=== PATIENT | female | born 1990 | race Caucasian/White ===

== ENCOUNTER 2016-06-15 21:31 | Emergency (ER) | payer MEDICAID, OTHER ==
[~2016-06-15 21:31] MED LIST: DIAZ5TAB PO; DYAZ37.5 PO; FLUO10CA9 PO; FLUO1TAB3 PO; HYDR25T PO; KEFL500C OR; LEXA1TAB PO; MULTIVIT PO; No Historical Meds; PROZ20CA11 PO; TRIA37.53 PO; VALI5TAB PO; VIST25CA PO; XANA1TAB2 PO
[2016-06-15] MEDS ORDERED: valACYclovir HCL 500 MG TAB As Ordered ONE (23:42)
--- NOTE | 2016-06-15 23:49 | EDDOCDS ---
Nurse's Notes [facility] Name: Teodora Herrera Age: 26 yrs Sex: Female : 1990 Arrival Date: 06/15/2016 Time: 21:31 Bed TR7 Private MD: Diagnosis: Herpesviral infection of genitalia and urogenital tract Presentation: 06/15 21:37 Presenting complaint: Patient states: noticed vaginal cyst and drainage for 3 days. rs3 Adult Sepsis Screening: The patient does not have new or worsening altered mentation. Patient's respiratory rate is less than 22. Systolic blood pressure is greater than 100. Patient has a qSOFA score of 0- Negative Sepsis Screen. Suicide/Homicide risk assessment- the patient denies having any suicidal and/or homicidal ideations and does not present with any other emotional, behavioral or mental health complaints. Status: Patient is not a service shop foreman or dependent. Transition of care: patient was not received from another setting of care. 21:37 Acuity: MASHA Level 3 rs3 21:37 Method Of Arrival: Walkin/Carried/Asstd rs3 Triage Assessment: 21:40 General: Appears in no apparent distress. Pain: Location: pelvis. HIV screening NA for rs3 this visit Offered previously. 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 none - PMHx: Anxiety; Depression; - PSHx: ; - Social history: Smoking status: Patient states former smoker of tobacco. No barriers to communication noted, The patient speaks fluent Yi. - Family history: Not pertinent. - : The pt / caregiver states he / she is not on anticoagulants. Home medication list is obtained from the patient. - Exposure Risk Screening:: None identified. Assessment: 23:01 General: Appears distressed, Behavior is crying. Neurological: Level of Consciousness jmb is awake, alert, obeys commands, Oriented to person, place, time, Speech is normal, Facial symmetry appears normal, Facial symmetry: tongue is midline. Cardiovascular: Capillary refill < 3 seconds Heart tones present Pulses are all present. Rhythm is regular. Respiratory: Airway is patent Respiratory effort is even, unlabored, Respiratory pattern is regular, symmetrical, Breath sounds are clear bilaterally. GI: Abdomen is obese, Bowel sounds present X 4 quads. Abd is soft X 4 quads. Derm: Skin is pink, warm & dry. Musculoskeletal: Range of motion intact in all extremities. Vital Signs: 21:33 BP 136 / 73; Pulse 88; Resp 18; Temp 96.9(O); Pulse Ox 99% on R/A; Weight 108.86 kg bruce (R); Height 5 ft. 2 in. (157.48 cm) (R); Pain 0/10; 23:37 BP 132 / 73 RA Sitting (auto/reg); Pulse 78 MON; Resp 20 S; Temp 96.6(O); Pulse Ox 97% cln on R/A; Pain 0/10; 21:33 Body Mass Index 43.90 (108.86 kg, 157.48 cm) bruce Vitals: 21:33 Log In Time: June 15, 2016 at 21:20. bruce 23:26 HIV Screen Result: Negative. b ED Course: 21:32 Patient visited by Leslee Goldberg PCA. bruce 21:32 Patient moved to Waiting bruce 21:34 Patient moved to Pre RCE bruce 21:39 Triage Initiated rs3 22:25 Patient moved to Triage 3 cln 22:27 Patient moved to I7 / 29 ms18 22:30 Chantell Jiménez MD is Attending Physician. ml 22:30 Patient visited by Chantell Jiménez MD. ml 22:30 Assist provider with pelvic exam: Set up pelvic tray. Specimens sent to lab. cz 22:47 Wet Prep Sent. cln 22:47 GC & Chlamydia Amplification Sent. cln 22:47 Viral Culture - All Other Sources Sent. cln 22:57 Patient visited by Evie Sutton PCA. cln 23:02 Patient visited by Vadim Garrett RN. jmb 23:36 Adriana Warner MD is Referral Physician. ml 23:40 Patient visited by Evie Sutton PCA. cln 23:46 Patient moved to TR7 cz 23:47 The patient / caregiver is instructed regarding the plan of care and ED course. cz 23:47 No IV's were initiated during this patient's visit. cz Administered Medications: 23:47 Drug: valACYclovir 1000 mg [valacyclovir 500 mg tablet (2 tabs)] Route: PO; cz Point of Care Testing: Urine : 22:56 hCG Reading: Negative; Control Reading: Positive; cln Ranges: Order Results: Lab Order: Wet Prep; SPEC'M 06/15/16 22:46 Test: WET PREP; Value: WET PREP RESULT; Status: F Test: WET PREP; Value: MANY EPITHELIAL CELLS PRESENT; Status: F Test: WET PREP; Value: FEW WBC; Status: F Test: WET PREP; Value: MODERATE SHORT RODS PRESENT; Status: F Test: WET PREP; Value: FEW LONG RODS PRESENT; Status: F Test: WET PREP; Value: MANY RBC; Status: F Outcome: 23:36 Discharge ordered by Provider. 23:47 Discharge Assessment: Patient awake, alert and oriented x 3. No cognitive and/or cz functional deficits noted. Patient verbalized understanding of disposition instructions. patient administered narcotics - no. The following High Risk Discharge criteria are identified: None. Discharged to home ambulatory, with significant other. Condition: stable. Discharge instructions given to patient, Instructed on discharge instructions, follow up and referral plans. medication usage, Demonstrated understanding of instructions, medications, Pt was receptive of discharge instructions/ teaching. Prescriptions given X 1. No special radiology studies were completed. Property :Personal belongings accompany Pt. 23:48 Patient left the ED. cz Signatures: Chantell Jiménez MD MD ml Zecher, Calvin, RN RN Kristine BarnesRN RN rs3 Leslee Goldberg, MOTOR VEHICLE SALESPERSON MOTOR VEHICLE SALESPERSON Vadim Eng RN RN Merry Hobbs RN RN ms18 Evie Sutton, MOTOR VEHICLE SALESPERSON MOTOR VEHICLE SALESPERSON cln MTDD
--- NOTE | 2016-06-15 23:49 | EDDOCDS ---
Physician Documentation [facility] Name: Teodora Herrera Age: 26 yrs Sex: Female : 1990 Arrival Date: 06/15/2016 Time: 21:31 Bed TR7 Private MD: Disposition: 06/15/16 23:36 Discharged to Home/Self Care. 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 - Condition is Stable. - Discharge Instructions: Herpes Labialis. - Prescriptions for Valtrex 1 g Oral Tablet - take 1 tablet by ORAL route every 12 hours for 10 days; 4 tablet. - Medication Reconciliation, Local Pharmacy Hours form. - Follow up: Adriana Warner MD; When: 1 week. - Problem is new. - Symptoms are unchanged. - Notes: follow up with gynecology. return if worsening symptoms. as discussed when outbreak is present - condom use completely. Historical: - Allergies: no known allergies; - Home Meds: 1. none - PMHx: Anxiety; Depression; - PSHx: ; - Social history: Smoking status: Patient states former smoker of tobacco. No barriers to communication noted, The patient speaks fluent Yemeni. - Family history: Not pertinent. - : The pt / caregiver states he / she is not on anticoagulants. Home medication list is obtained from the patient. - Exposure Risk Screening:: None identified. BOTANICAL TECHNICAL OFFICER: 06/15 21:40 LMP 06/14/2016 rs3 Vital Signs: 21:33 BP 136 / 73; Pulse 88; Resp 18; Temp 96.9(O); Pulse Ox 99% on R/A; Weight 108.86 kg / bruce 240 lbs (R); Height 5 ft. 2 in. (157.48 cm) (R); Pain 0/10; 23:37 BP 132 / 73 RA Sitting (auto/reg); Pulse 78 MON; Resp 20 S; Temp 96.6(O); Pulse Ox 97% cln on R/A; Pain 0/10; 21:33 Body Mass Index 43.90 (108.86 kg, 157.48 cm) bruce MDM: 22:37 UCG by Nursing ordered. ml 22:37 Viral Culture - All Other Sources Ordered. EDMS 22:37 GC & Chlamydia Amplification Ordered. EDMS 22:37 Wet Prep Ordered. EDMS 22:43 HIV Screen, Nursing ordered. ml 23:35 Wet Prep Reviewed. ml 23:36 valACYclovir 1000 mg PO once ordered. ml Point of Care Testing: Urine : 22:56 hCG Reading: Negative; Control Reading: Positive; cln Ranges: Administered Medications: 23:47 Drug: valACYclovir 1000 mg [valacyclovir 500 mg tablet (2 tabs)] Route: PO; cz Signatures: Dispatcher [employer] EDChantell Tierney MD MD Solo Tang RN RN Kristine Crum RN RN rs3 MTDD
--- NOTE | 2016-06-18 00:49 | EDDOCDS ---
Nurse's Notes [facility] Name: Teodora Herrera Age: 26 yrs Sex: Female : 1990 Arrival Date: 06/15/2016 Time: 21:31 Bed TR7 Private MD: Diagnosis: Herpesviral infection of genitalia and urogenital tract Presentation: 06/15 21:37 Presenting complaint: Patient states: noticed vaginal cyst and drainage for 3 days. rs3 Adult Sepsis Screening: The patient does not have new or worsening altered mentation. Patient's respiratory rate is less than 22. Systolic blood pressure is greater than 100. Patient has a qSOFA score of 0- Negative Sepsis Screen. Suicide/Homicide risk assessment- the patient denies having any suicidal and/or homicidal ideations and does not present with any other emotional, behavioral or mental health complaints. Status: Patient is not a food service lead or dependent. Transition of care: patient was not received from another setting of care. 21:37 Acuity: MASHA Level 3 rs3 21:37 Method Of Arrival: Walkin/Carried/Asstd rs3 Triage Assessment: 21:40 General: Appears in no apparent distress. Pain: Location: pelvis. HIV screening NA for rs3 this visit Offered previously. HOUSEKEEPING LEAD: 21:40 LMP 06/14/2016 rs3 Historical: - Allergies: no known allergies; - Home Meds: 1. none - PMHx: Anxiety; Depression; - PSHx: ; - Social history: Smoking status: Patient states former smoker of tobacco. No barriers to communication noted, The patient speaks fluent Kinyarwanda. - Family history: Not pertinent. - : The pt / caregiver states he / she is not on anticoagulants. Home medication list is obtained from the patient. - Exposure Risk Screening:: None identified. Assessment: 23:01 General: Appears distressed, Behavior is crying. Neurological: Level of Consciousness jmb is awake, alert, obeys commands, Oriented to person, place, time, Speech is normal, Facial symmetry appears normal, Facial symmetry: tongue is midline. Cardiovascular: Capillary refill < 3 seconds Heart tones present Pulses are all present. Rhythm is regular. Respiratory: Airway is patent Respiratory effort is even, unlabored, Respiratory pattern is regular, symmetrical, Breath sounds are clear bilaterally. GI: Abdomen is obese, Bowel sounds present X 4 quads. Abd is soft X 4 quads. Derm: Skin is pink, warm & dry. Musculoskeletal: Range of motion intact in all extremities. Vital Signs: 21:33 BP 136 / 73; Pulse 88; Resp 18; Temp 96.9(O); Pulse Ox 99% on R/A; Weight 108.86 kg bruce (R); Height 5 ft. 2 in. (157.48 cm) (R); Pain 0/10; 23:37 BP 132 / 73 RA Sitting (auto/reg); Pulse 78 MON; Resp 20 S; Temp 96.6(O); Pulse Ox 97% cln on R/A; Pain 0/10; 21:33 Body Mass Index 43.90 (108.86 kg, 157.48 cm) bruce Vitals: 21:33 Log In Time: June 15, 2016 at 21:20. bruce 23:26 HIV Screen Result: Negative. b ED Course: 21:32 Patient visited by Leslee Goldberg PCA. bruce 21:32 Patient moved to Waiting bruce 21:34 Patient moved to Pre RCE bruce 21:39 Triage Initiated rs3 22:25 Patient moved to Triage 3 cln 22:27 Patient moved to I / ms18 22:30 Chantell Jiménez MD is Attending Physician. ml 22:30 Patient visited by Chantell Jiménez MD. ml 22:30 Assist provider with pelvic exam: Set up pelvic tray. Specimens sent to lab. cz 22:47 Wet Prep Sent. cln 22:47 GC & Chlamydia Amplification Sent. cln 22:47 Viral Culture - All Other Sources Sent. cln 22:57 Patient visited by Evie Sutton PCA. cln 23:02 Patient visited by Vadim Garrett RN. jmb 23:36 Adriana Warner MD is Referral Physician. ml 23:40 Patient visited by Evie Sutton PCA. cln 23:46 Patient moved to TR7 cz 23:47 The patient / caregiver is instructed regarding the plan of care and ED course. cz 23:47 No IV's were initiated during this patient's visit. cz 06/16 11:17 T-Sheet-- Draft Copy was scanned into [employer] and attached to record. gb Administered Medications: 06/15 23:47 Drug: valACYclovir 1000 mg [valacyclovir 500 mg tablet (2 tabs)] Route: PO; cz Point of Care Testing: Urine : 22:56 hCG Reading: Negative; Control Reading: Positive; cln Ranges: Order Results: Lab Order: GC & Chlamydia Amplification; SPEC'M 06/15/16 22:46 Test: CHLAMYDIA DNA AMPLIFICATION; Value: NEGATIVE; Range: NEGATIVE; Status: F Test: GC DNA AMPLIFICATION; Value: NEGATIVE; Range: NEGATIVE; Status: F Lab Order: Wet Prep; SPEC'M 06/15/16 22:46 Test: WET PREP; Value: WET PREP RESULT; Status: F Test: WET PREP; Value: MANY EPITHELIAL CELLS PRESENT; Status: F Test: WET PREP; Value: FEW WBC; Status: F Test: WET PREP; Value: MODERATE SHORT RODS PRESENT; Status: F Test: WET PREP; Value: FEW LONG RODS PRESENT; Status: F Test: WET PREP; Value: MANY RBC; Status: F Outcome: 23:36 Discharge ordered by Provider. ml 23:47 Discharge Assessment: Patient awake, alert and oriented x 3. No cognitive and/or cz functional deficits noted. Patient verbalized understanding of disposition instructions. patient administered narcotics - no. The following High Risk Discharge criteria are identified: None. Discharged to home ambulatory, with significant other. Condition: stable. Discharge instructions given to patient, Instructed on discharge instructions, follow up and referral plans. medication usage, Demonstrated understanding of instructions, medications, Pt was receptive of discharge instructions/ teaching. Prescriptions given X 1. No special radiology studies were completed. Property :Personal belongings accompany Pt. 23:48 Patient left the ED. cz Signatures: Chantell Jiménez MD MD ml Solo Tang RN RN Liya Franco, Reg Reg gb Kristine CrumRN RN rs3 Leslee Goldberg, FOOD PRODUCTION WORKER FOOD PRODUCTION WORKER Vadim Eng RN RN jmb Smith, Mallory, RN RN ms18 Evie Sutton, FOOD PRODUCTION WORKER FOOD PRODUCTION WORKER cln Chart Complete MTDD
--- NOTE | 2016-06-18 00:49 | EDDOCDS ---
Physician Documentation [facility] Name: Teodora Herrera Age: 26 yrs Sex: Female : 1990 Arrival Date: 06/15/2016 Time: 21:31 Bed TR7 Private MD: Disposition: 06/15/16 23:36 Discharged to Home/Self Care. 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 - Condition is Stable. - Discharge Instructions: Herpes Labialis. - Prescriptions for Valtrex 1 g Oral Tablet - take 1 tablet by ORAL route every 12 hours for 10 days; 4 tablet. - Medication Reconciliation, Local Pharmacy Hours form. - Follow up: Adriana Warner MD; When: 1 week. - Problem is new. - Symptoms are unchanged. - Notes: follow up with gynecology. return if worsening symptoms. as discussed when outbreak is present - condom use completely. Historical: - Allergies: no known allergies; - Home Meds: 1. none - PMHx: Anxiety; Depression; - PSHx: ; - Social history: Smoking status: Patient states former smoker of tobacco. No barriers to communication noted, The patient speaks fluent Somali. - Family history: Not pertinent. - : The pt / caregiver states he / she is not on anticoagulants. Home medication list is obtained from the patient. - Exposure Risk Screening:: None identified. PIPELINE SUPERINTENDENT DIVISION: 06/15 21:40 LMP 06/14/2016 rs3 Vital Signs: 21:33 BP 136 / 73; Pulse 88; Resp 18; Temp 96.9(O); Pulse Ox 99% on R/A; Weight 108.86 kg / bruce 240 lbs (R); Height 5 ft. 2 in. (157.48 cm) (R); Pain 0/10; 23:37 BP 132 / 73 RA Sitting (auto/reg); Pulse 78 MON; Resp 20 S; Temp 96.6(O); Pulse Ox 97% cln on R/A; Pain 0/10; 21:33 Body Mass Index 43.90 (108.86 kg, 157.48 cm) bruce MDM: 22:37 UCG by Nursing ordered. ml 22:37 Viral Culture - All Other Sources Ordered. EDMS 22:37 GC & Chlamydia Amplification Ordered. EDMS 22:37 Wet Prep Ordered. EDMS 22:43 HIV Screen, Nursing ordered. ml 23:35 Wet Prep Reviewed. ml 23:36 valACYclovir 1000 mg PO once ordered. ml 06/16 11:17 T-Sheet-- Draft Copy was scanned into [employer] and attached to record. [email or web address] Point of Care Testing: Urine : 06/15 22:56 hCG Reading: Negative; Control Reading: Positive; cln Ranges: Administered Medications: 23:47 Drug: valACYclovir 1000 mg [valacyclovir 500 mg tablet (2 tabs)] Route: PO; cz Signatures: Dispatcher [employer] EDMT Chantell Jiménez MD MD ml Zecher, Calvin, SCOTT RN cz Liya Velasquez, Kristine PerezRN RN rs3 The chart was reviewed and I authenticate all verbal orders and agree with the evaluation and treatment provided.Attachments: 06/16 11:17 T-Sheet-- Draft Copy gb Chart Complete MTDD
--- NOTE | 2016-06-18 00:49 | EDDOCDS ---
Physician Documentation [facility] Name: Teodora Herrera Age: 26 yrs Sex: Female : 1990 Arrival Date: 06/15/2016 Time: 21:31 Bed TR7 Private MD: Disposition: 06/15/16 23:36 Discharged to Home/Self Care. 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 - Condition is Stable. - Discharge Instructions: Herpes Labialis. - Prescriptions for Valtrex 1 g Oral Tablet - take 1 tablet by ORAL route every 12 hours for 10 days; 4 tablet. - Medication Reconciliation, Local Pharmacy Hours form. - Follow up: Adriana Warner MD; When: 1 week. - Problem is new. - Symptoms are unchanged. - Notes: follow up with gynecology. return if worsening symptoms. as discussed when outbreak is present - condom use completely. Historical: - Allergies: no known allergies; - Home Meds: 1. none - PMHx: Anxiety; Depression; - PSHx: ; - Social history: Smoking status: Patient states former smoker of tobacco. No barriers to communication noted, The patient speaks fluent Estonian. - Family history: Not pertinent. - : The pt / caregiver states he / she is not on anticoagulants. Home medication list is obtained from the patient. - Exposure Risk Screening:: None identified. YOUTH WORKER: 06/15 21:40 LMP 06/14/2016 rs3 Vital Signs: 21:33 BP 136 / 73; Pulse 88; Resp 18; Temp 96.9(O); Pulse Ox 99% on R/A; Weight 108.86 kg / bruce 240 lbs (R); Height 5 ft. 2 in. (157.48 cm) (R); Pain 0/10; 23:37 BP 132 / 73 RA Sitting (auto/reg); Pulse 78 MON; Resp 20 S; Temp 96.6(O); Pulse Ox 97% cln on R/A; Pain 0/10; 21:33 Body Mass Index 43.90 (108.86 kg, 157.48 cm) bruce MDM: 22:37 UCG by Nursing ordered. ml 22:37 Viral Culture - All Other Sources Ordered. EDMS 22:37 GC & Chlamydia Amplification Ordered. EDMS 22:37 Wet Prep Ordered. EDMS 22:43 HIV Screen, Nursing ordered. ml 23:35 Wet Prep Reviewed. ml 23:36 valACYclovir 1000 mg PO once ordered. ml 06/16 11:17 T-Sheet-- Draft Copy was scanned into [employer] and attached to record. [email or web address] Point of Care Testing: Urine : 06/15 22:56 hCG Reading: Negative; Control Reading: Positive; cln Ranges: Administered Medications: 23:47 Drug: valACYclovir 1000 mg [valacyclovir 500 mg tablet (2 tabs)] Route: PO; cz Signatures: Dispatcher [employer] EDNE Chantell Jiménez MD MD ml Zecher, Calvin, SCOTT RN cz Liya Velasquez, Kristine PerezRN RN rs3 The chart was reviewed and I authenticate all verbal orders and agree with the evaluation and treatment provided.Attachments: 06/16 11:17 T-Sheet-- Draft Copy gb Chart Complete MTDD
--- NOTE | 2016-06-21 11:16 | EDDOCDS ---
Physician Documentation [facility] Name: Teodora Herrera Age: 26 yrs Sex: Female : 1990 Arrival Date: 06/15/2016 Time: 21:31 Bed TR7 Private MD: Disposition: 06/15/16 23:36 Discharged to Home/Self Care. 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 - Condition is Stable. - Discharge Instructions: Herpes Labialis. - Prescriptions for Valtrex 1 g Oral Tablet - take 1 tablet by ORAL route every 12 hours for 10 days; 4 tablet. - Medication Reconciliation, Local Pharmacy Hours form. - Follow up: Adriana Warner MD; When: 1 week. - Problem is new. - Symptoms are unchanged. - Notes: follow up with gynecology. return if worsening symptoms. as discussed when outbreak is present - condom use completely. Historical: - Allergies: no known allergies; - Home Meds: 1. none - PMHx: Anxiety; Depression; - PSHx: ; - Social history: Smoking status: Patient states former smoker of tobacco. No barriers to communication noted, The patient speaks fluent Peruvian. - Family history: Not pertinent. - : The pt / caregiver states he / she is not on anticoagulants. Home medication list is obtained from the patient. - Exposure Risk Screening:: None identified. INSIDE SALES DIRECTOR: 06/15 21:40 LMP 06/14/2016 rs3 Vital Signs: 21:33 BP 136 / 73; Pulse 88; Resp 18; Temp 96.9(O); Pulse Ox 99% on R/A; Weight 108.86 kg / bruce 240 lbs (R); Height 5 ft. 2 in. (157.48 cm) (R); Pain 0/10; 23:37 BP 132 / 73 RA Sitting (auto/reg); Pulse 78 MON; Resp 20 S; Temp 96.6(O); Pulse Ox 97% cln on R/A; Pain 0/10; 21:33 Body Mass Index 43.90 (108.86 kg, 157.48 cm) bruce MDM: 22:37 UCG by Nursing ordered. ml 22:37 Viral Culture - All Other Sources Ordered. EDMS 22:37 GC & Chlamydia Amplification Ordered. EDMS 22:37 Wet Prep Ordered. EDMS 22:43 HIV Screen, Nursing ordered. ml 23:35 Wet Prep Reviewed. ml 23:36 valACYclovir 1000 mg PO once ordered. ml 06/16 11:17 T-Sheet-- Draft Copy was scanned into [employer] and attached to record. [email or web address] Point of Care Testing: Urine : 06/15 22:56 hCG Reading: Negative; Control Reading: Positive; cln Ranges: Administered Medications: 23:47 Drug: valACYclovir 1000 mg [valacyclovir 500 mg tablet (2 tabs)] Route: PO; cz Signatures: Dispatcher [employer] EDSC Chantell Jiménez MD MD ml Zecher, Calvin, SCOTT RN cz Liya Velasquez, Krsitine PerezRN RN rs3 The chart was reviewed and I authenticate all verbal orders and agree with the evaluation and treatment provided.Attachments: 06/16 11:17 T-Sheet-- Draft Copy gb MTDD
--- NOTE | 2016-06-21 11:16 | EDDOCDS ---
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 rs3 Adult Sepsis Screening: The patient does not have new or worsening altered mentation. Patient's respiratory rate is less than 22. Systolic blood pressure is greater than 100. Patient has a qSOFA score of 0- Negative Sepsis Screen. Suicide/Homicide risk assessment- the patient denies having any suicidal and/or homicidal ideations and does not present with any other emotional, behavioral or mental health complaints. 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 Transition of care: patient was not received from another setting of care. 21:37 Acuity: MASHA Level 3 rs3 21:37 Method Of Arrival: Walkin/Carried/Asstd rs3 Triage Assessment: 21:40 General: Appears in no apparent distress. Pain: Location: pelvis. HIV screening NA for rs3 this visit Offered previously. 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 none - PMHx: Anxiety; Depression; - PSHx: ; - Social history: Smoking status: Patient states former smoker of tobacco. No barriers to communication noted, The patient speaks fluent Turkish. - Family history: Not pertinent. - : The pt / caregiver states he / she is not on anticoagulants. Home medication list is obtained from the patient. - Exposure Risk Screening:: None identified. Assessment: 23:01 General: Appears distressed, Behavior is crying. Neurological: Level of Consciousness jmb is awake, alert, obeys commands, Oriented to person, place, time, Speech is normal, Facial symmetry appears normal, Facial symmetry: tongue is midline. Cardiovascular: Capillary refill < 3 seconds Heart tones present Pulses are all present. Rhythm is regular. Respiratory: Airway is patent Respiratory effort is even, unlabored, Respiratory pattern is regular, symmetrical, Breath sounds are clear bilaterally. GI: Abdomen is obese, Bowel sounds present X 4 quads. Abd is soft X 4 quads. Derm: Skin is pink, warm & dry. Musculoskeletal: Range of motion intact in all extremities. Vital Signs: 21:33 BP 136 / 73; Pulse 88; Resp 18; Temp 96.9(O); Pulse Ox 99% on R/A; Weight 108.86 kg bruce (R); Height 5 ft. 2 in. (157.48 cm) (R); Pain 0/10; 23:37 BP 132 / 73 RA Sitting (auto/reg); Pulse 78 MON; Resp 20 S; Temp 96.6(O); Pulse Ox 97% cln on R/A; Pain 0/10; 21:33 Body Mass Index 43.90 (108.86 kg, 157.48 cm) bruce Vitals: 21:33 Log In Time: June 15, 2016 at 21:20. bruce 23:26 HIV Screen Result: Negative. b ED Course: 21:32 Patient visited by Leslee Goldberg PCA. bruce 21:32 Patient moved to Waiting bruce 21:34 Patient moved to Pre RCE bruce 21:39 Triage Initiated rs3 22:25 Patient moved to Triage 3 cln 22:27 Patient moved to I / ms18 22:30 Chantell Jiménez MD is Attending Physician. ml 22:30 Patient visited by Chantell Jiménez MD. ml 22:30 Assist provider with pelvic exam: Set up pelvic tray. Specimens sent to lab. cz 22:47 Wet Prep Sent. cln 22:47 GC & Chlamydia Amplification Sent. cln 22:47 Viral Culture - All Other Sources Sent. cln 22:57 Patient visited by Evie Sutton PCA. cln 23:02 Patient visited by Vadim Garrett RN. jmb 23:36 Adriana Warner MD is Referral Physician. ml 23:40 Patient visited by Evie Sutton PCA. cln 23:46 Patient moved to TR7 cz 23:47 The patient / caregiver is instructed regarding the plan of care and ED course. cz 23:47 No IV's were initiated during this patient's visit. cz 06/16 11:17 T-Sheet-- Draft Copy was scanned into [employer] and attached to record. 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 Report copy to follow on a separate form. 06/21/16 REF LAB#:[id number] Lab Order: GC & Chlamydia Amplification; SPEC'M 06/15/16 22:46 Test: CHLAMYDIA DNA AMPLIFICATION; Value: NEGATIVE; Range: NEGATIVE; Status: F Test: GC DNA AMPLIFICATION; Value: NEGATIVE; Range: NEGATIVE; Status: F Lab Order: Wet Prep; SPEC'M 06/15/16 22:46 Test: WET PREP; Value: WET PREP RESULT; Status: F Test: WET PREP; Value: MANY EPITHELIAL CELLS PRESENT; Status: F Test: WET PREP; Value: FEW WBC; Status: F Test: WET PREP; Value: MODERATE SHORT RODS PRESENT; Status: F Test: WET PREP; Value: FEW LONG RODS PRESENT; Status: F Test: WET PREP; Value: MANY RBC; Status: F Outcome: 23:36 Discharge ordered by Provider. 23:47 Discharge Assessment: Patient awake, alert and oriented x 3. No cognitive and/or cz functional deficits noted. Patient verbalized understanding of disposition instructions. patient administered narcotics - no. The following High Risk Discharge criteria are identified: None. Discharged to home ambulatory, with significant other. Condition: stable. Discharge instructions given to patient, Instructed on discharge instructions, follow up and referral plans. medication usage, Demonstrated understanding of instructions, medications, Pt was receptive of discharge instructions/ teaching. Prescriptions given X 1. No special radiology studies were completed. Property :Personal belongings accompany Pt. 23:48 Patient left the ED. cz Addendum: 06/21/2016 11:15 Narrative: viral culture results reviewed - treated appropriately at d/c. [facility] Signatures: Chantell Jiménez MD MD Brock Sterling RN RN [facility] Solo Tang RN RN Adela Francoa, Reg Reg gb Soosamigdalia,Kristine,RN RN rs3 Ashlyn, Leslee, TIMBER MANAGEMENT SPECIALIST TIMBER MANAGEMENT SPECIALIST Vadim Eng,RN RN Merry Hobbs,RN RN ms18 Herman, Crystal, TIMBER MANAGEMENT SPECIALIST TIMBER MANAGEMENT SPECIALIST cln MTDD
--- NOTE | 2016-06-21 11:16 | EDDOCDS ---
Physician Documentation [facility] Name: Teodora Herrera Age: 26 yrs Sex: Female : 1990 Arrival Date: 06/15/2016 Time: 21:31 Bed TR7 Private MD: Disposition: 06/15/16 23:36 Discharged to Home/Self Care. 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 - Condition is Stable. - Discharge Instructions: Herpes Labialis. - Prescriptions for Valtrex 1 g Oral Tablet - take 1 tablet by ORAL route every 12 hours for 10 days; 4 tablet. - Medication Reconciliation, Local Pharmacy Hours form. - Follow up: Adriana Warner MD; When: 1 week. - Problem is new. - Symptoms are unchanged. - Notes: follow up with gynecology. return if worsening symptoms. as discussed when outbreak is present - condom use completely. Historical: - Allergies: no known allergies; - Home Meds: 1. none - PMHx: Anxiety; Depression; - PSHx: ; - Social history: Smoking status: Patient states former smoker of tobacco. No barriers to communication noted, The patient speaks fluent Thai. - Family history: Not pertinent. - : The pt / caregiver states he / she is not on anticoagulants. Home medication list is obtained from the patient. - Exposure Risk Screening:: None identified. GUM REMOVER: 06/15 21:40 LMP 06/14/2016 rs3 Vital Signs: 21:33 BP 136 / 73; Pulse 88; Resp 18; Temp 96.9(O); Pulse Ox 99% on R/A; Weight 108.86 kg / bruce 240 lbs (R); Height 5 ft. 2 in. (157.48 cm) (R); Pain 0/10; 23:37 BP 132 / 73 RA Sitting (auto/reg); Pulse 78 MON; Resp 20 S; Temp 96.6(O); Pulse Ox 97% cln on R/A; Pain 0/10; 21:33 Body Mass Index 43.90 (108.86 kg, 157.48 cm) bruce MDM: 22:37 UCG by Nursing ordered. ml 22:37 Viral Culture - All Other Sources Ordered. EDMS 22:37 GC & Chlamydia Amplification Ordered. EDMS 22:37 Wet Prep Ordered. EDMS 22:43 HIV Screen, Nursing ordered. ml 23:35 Wet Prep Reviewed. ml 23:36 valACYclovir 1000 mg PO once ordered. ml 06/16 11:17 T-Sheet-- Draft Copy was scanned into [employer] and attached to record. jacquie Point of Care Testing: Urine : 06/15 22:56 hCG Reading: Negative; Control Reading: Positive; cln Ranges: Administered Medications: 23:47 Drug: valACYclovir 1000 mg [valacyclovir 500 mg tablet (2 tabs)] Route: PO; cz Signatures: Dispatcher [employer] EDND Chantell Jiménez MD MD ml Zecher, Calvin, SCOTT RN cz Liya Velasquez, Kristine PerezRN RN rs3 The chart was reviewed and I authenticate all verbal orders and agree with the evaluation and treatment provided.Attachments: 06/16 11:17 T-Sheet-- Draft Copy gb MTDD
--- NOTE | 2016-06-21 11:17 | EDDOCDS ---
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 rs3 Adult Sepsis Screening: The patient does not have new or worsening altered mentation. Patient's respiratory rate is less than 22. Systolic blood pressure is greater than 100. Patient has a qSOFA score of 0- Negative Sepsis Screen. Suicide/Homicide risk assessment- the patient denies having any suicidal and/or homicidal ideations and does not present with any other emotional, behavioral or mental health complaints. Status: Patient is not a service desk specialist or dependent. Transition of care: patient was not received from another setting of care. 21:37 Acuity: MASHA Level 3 rs3 21:37 Method Of Arrival: Walkin/Carried/Asstd rs3 Triage Assessment: 21:40 General: Appears in no apparent distress. Pain: Location: pelvis. HIV screening NA for rs3 this visit Offered previously. 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 none - PMHx: Anxiety; Depression; - PSHx: ; - Social history: Smoking status: Patient states former smoker of tobacco. No barriers to communication noted, The patient speaks fluent Luxembourgish. - Family history: Not pertinent. - : The pt / caregiver states he / she is not on anticoagulants. Home medication list is obtained from the patient. - Exposure Risk Screening:: None identified. Assessment: 23:01 General: Appears distressed, Behavior is crying. Neurological: Level of Consciousness jmb is awake, alert, obeys commands, Oriented to person, place, time, Speech is normal, Facial symmetry appears normal, Facial symmetry: tongue is midline. Cardiovascular: Capillary refill < 3 seconds Heart tones present Pulses are all present. Rhythm is regular. Respiratory: Airway is patent Respiratory effort is even, unlabored, Respiratory pattern is regular, symmetrical, Breath sounds are clear bilaterally. GI: Abdomen is obese, Bowel sounds present X 4 quads. Abd is soft X 4 quads. Derm: Skin is pink, warm & dry. Musculoskeletal: Range of motion intact in all extremities. Vital Signs: 21:33 BP 136 / 73; Pulse 88; Resp 18; Temp 96.9(O); Pulse Ox 99% on R/A; Weight 108.86 kg bruce (R); Height 5 ft. 2 in. (157.48 cm) (R); Pain 0/10; 23:37 BP 132 / 73 RA Sitting (auto/reg); Pulse 78 MON; Resp 20 S; Temp 96.6(O); Pulse Ox 97% cln on R/A; Pain 0/10; 21:33 Body Mass Index 43.90 (108.86 kg, 157.48 cm) bruce Vitals: 21:33 Log In Time: June 15, 2016 at 21:20. bruce 23:26 HIV Screen Result: Negative. b ED Course: 21:32 Patient visited by Leslee Goldberg PCA. bruce 21:32 Patient moved to Waiting bruce 21:34 Patient moved to Pre RCE bruce 21:39 Triage Initiated rs3 22:25 Patient moved to Triage 3 cln 22:27 Patient moved to I / ms18 22:30 Chantell Jiménez MD is Attending Physician. ml 22:30 Patient visited by Chantell Jiménez MD. ml 22:30 Assist provider with pelvic exam: Set up pelvic tray. Specimens sent to lab. cz 22:47 Wet Prep Sent. cln 22:47 GC & Chlamydia Amplification Sent. cln 22:47 Viral Culture - All Other Sources Sent. cln 22:57 Patient visited by Evie Sutton PCA. cln 23:02 Patient visited by Vadim Garrett RN. jmb 23:36 Adriana Warner MD is Referral Physician. ml 23:40 Patient visited by Evie Sutton PCA. cln 23:46 Patient moved to TR7 cz 23:47 The patient / caregiver is instructed regarding the plan of care and ED course. cz 23:47 No IV's were initiated during this patient's visit. cz 06/16 11:17 T-Sheet-- Draft Copy was scanned into [employer] and attached to record. 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 Report copy to follow on a separate form. 06/21/16 REF LAB#:[id number] Lab Order: GC & Chlamydia Amplification; SPEC'M 06/15/16 22:46 Test: CHLAMYDIA DNA AMPLIFICATION; Value: NEGATIVE; Range: NEGATIVE; Status: F Test: GC DNA AMPLIFICATION; Value: NEGATIVE; Range: NEGATIVE; Status: F Lab Order: Wet Prep; SPEC'M 06/15/16 22:46 Test: WET PREP; Value: WET PREP RESULT; Status: F Test: WET PREP; Value: MANY EPITHELIAL CELLS PRESENT; Status: F Test: WET PREP; Value: FEW WBC; Status: F Test: WET PREP; Value: MODERATE SHORT RODS PRESENT; Status: F Test: WET PREP; Value: FEW LONG RODS PRESENT; Status: F Test: WET PREP; Value: MANY RBC; Status: F Outcome: 23:36 Discharge ordered by Provider. 23:47 Discharge Assessment: Patient awake, alert and oriented x 3. No cognitive and/or cz functional deficits noted. Patient verbalized understanding of disposition instructions. patient administered narcotics - no. The following High Risk Discharge criteria are identified: None. Discharged to home ambulatory, with significant other. Condition: stable. Discharge instructions given to patient, Instructed on discharge instructions, follow up and referral plans. medication usage, Demonstrated understanding of instructions, medications, Pt was receptive of discharge instructions/ teaching. Prescriptions given X 1. No special radiology studies were completed. Property :Personal belongings accompany Pt. 23:48 Patient left the ED. cz Addendum: 06/21/2016 11:15 Narrative: viral culture results reviewed - treated appropriately at d/c. [facility] Signatures: Chantell Jiménez MD MD Brock Sterling RN RN [facility] Solo Tang RN RN Adela Francoa, Reg Reg gb Soosamigdalia,Kristine,RN RN rs3 Ashlyn, Leslee, CLAM DIGGER CLAM DIGGER bruce Vadim Garrett,RN RN Merry Hobbs,RN RN ms18 Herman, Crystal, CLAM DIGGER CLAM DIGGER cln Chart Complete MTDD
--- NOTE | 2016-06-21 11:17 | EDDOCDS ---
Physician Documentation [facility] Name: Teodora Herrera Age: 26 yrs Sex: Female : 1990 Arrival Date: 06/15/2016 Time: 21:31 Bed TR7 Private MD: Disposition: 06/15/16 23:36 Discharged to Home/Self Care. 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 - Condition is Stable. - Discharge Instructions: Herpes Labialis. - Prescriptions for Valtrex 1 g Oral Tablet - take 1 tablet by ORAL route every 12 hours for 10 days; 4 tablet. - Medication Reconciliation, Local Pharmacy Hours form. - Follow up: Adriana Warner MD; When: 1 week. - Problem is new. - Symptoms are unchanged. - Notes: follow up with gynecology. return if worsening symptoms. as discussed when outbreak is present - condom use completely. Historical: - Allergies: no known allergies; - Home Meds: 1. none - PMHx: Anxiety; Depression; - PSHx: ; - Social history: Smoking status: Patient states former smoker of tobacco. No barriers to communication noted, The patient speaks fluent Kenyan. - Family history: Not pertinent. - : The pt / caregiver states he / she is not on anticoagulants. Home medication list is obtained from the patient. - Exposure Risk Screening:: None identified. 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 2 in. (157.48 cm) (R); Pain 0/10; 23:37 BP 132 / 73 RA Sitting (auto/reg); Pulse 78 MON; Resp 20 S; Temp 96.6(O); Pulse Ox 97% cln on R/A; Pain 0/10; 21:33 Body Mass Index 43.90 (108.86 kg, 157.48 cm) bruce MDM: 22:37 UCG by Nursing ordered. ml 22:37 Viral Culture - All Other Sources Ordered. EDMS 22:37 GC & Chlamydia Amplification Ordered. EDMS 22:37 Wet Prep Ordered. EDMS 22:43 HIV Screen, Nursing ordered. ml 23:35 Wet Prep Reviewed. ml 23:36 valACYclovir 1000 mg PO once ordered. ml 06/16 11:17 T-Sheet-- Draft Copy was scanned into [employer] and attached to record. jacquie Point of Care Testing: Urine : 06/15 22:56 hCG Reading: Negative; Control Reading: Positive; cln Ranges: Administered Medications: 23:47 Drug: valACYclovir 1000 mg [valacyclovir 500 mg tablet (2 tabs)] Route: PO; cz Signatures: Dispatcher [employer] EDDC Chantell Jiménez MD MD ml Zecher, Calvin, SCOTT RN cz Liya Velasquez, Kristine PerezRN RN rs3 The chart was reviewed and I authenticate all verbal orders and agree with the evaluation and treatment provided.Attachments: 06/16 11:17 T-Sheet-- Draft Copy gb Chart Complete MTDD
--- NOTE | 2016-06-21 11:17 | EDDOCDS ---
Physician Documentation [facility] Name: Teodora Herrera Age: 26 yrs Sex: Female : 1990 Arrival Date: 06/15/2016 Time: 21:31 Bed TR7 Private MD: Disposition: 06/15/16 23:36 Discharged to Home/Self Care. 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 - Condition is Stable. - Discharge Instructions: Herpes Labialis. - Prescriptions for Valtrex 1 g Oral Tablet - take 1 tablet by ORAL route every 12 hours for 10 days; 4 tablet. - Medication Reconciliation, Local Pharmacy Hours form. - Follow up: Adriana Warner MD; When: 1 week. - Problem is new. - Symptoms are unchanged. - Notes: follow up with gynecology. return if worsening symptoms. as discussed when outbreak is present - condom use completely. Historical: - Allergies: no known allergies; - Home Meds: 1. none - PMHx: Anxiety; Depression; - PSHx: ; - Social history: Smoking status: Patient states former smoker of tobacco. No barriers to communication noted, The patient speaks fluent Swazi. - Family history: Not pertinent. - : The pt / caregiver states he / she is not on anticoagulants. Home medication list is obtained from the patient. - Exposure Risk Screening:: None identified. DIRECTOR OF HUMAN RESOURCES: 06/15 21:40 LMP 06/14/2016 rs3 Vital Signs: 21:33 BP 136 / 73; Pulse 88; Resp 18; Temp 96.9(O); Pulse Ox 99% on R/A; Weight 108.86 kg / bruce 240 lbs (R); Height 5 ft. 2 in. (157.48 cm) (R); Pain 0/10; 23:37 BP 132 / 73 RA Sitting (auto/reg); Pulse 78 MON; Resp 20 S; Temp 96.6(O); Pulse Ox 97% cln on R/A; Pain 0/10; 21:33 Body Mass Index 43.90 (108.86 kg, 157.48 cm) rbuce MDM: 22:37 UCG by Nursing ordered. ml 22:37 Viral Culture - All Other Sources Ordered. EDMS 22:37 GC & Chlamydia Amplification Ordered. EDMS 22:37 Wet Prep Ordered. EDMS 22:43 HIV Screen, Nursing ordered. ml 23:35 Wet Prep Reviewed. ml 23:36 valACYclovir 1000 mg PO once ordered. ml 06/16 11:17 T-Sheet-- Draft Copy was scanned into [employer] and attached to record. jacquie Point of Care Testing: Urine : 06/15 22:56 hCG Reading: Negative; Control Reading: Positive; cln Ranges: Administered Medications: 23:47 Drug: valACYclovir 1000 mg [valacyclovir 500 mg tablet (2 tabs)] Route: PO; cz Signatures: Dispatcher [employer] EDAK Chantell Jiménez MD MD ml Zecher, Calvin, SCOTT RN cz Liya Velasquez, Kristine PerezRN RN rs3 The chart was reviewed and I authenticate all verbal orders and agree with the evaluation and treatment provided.Attachments: 06/16 11:17 T-Sheet-- Draft Copy gb Chart Complete MTDD
== END 2016-06-15 23:48 | disposition home or self-care (01) ==
LOC: M ED 21:31
DX: A60.09 Herpesviral infection of other urogenital tract (principal); Z87.891 Personal history of nicotine dependence

== ENCOUNTER → 2016-06-26 | Outpatient (REF) | payer OTHER ==
[2016-06-26 12:17] LABS: MEAN CORPUSCULAR HEMOGLOBIN 31.4 pg (27.0-33.0); MEAN CORPUSCULAR HGB CONC 33.4 g/dl (32.0-36.5); MEAN CORPUSCULAR VOLUME 94.2 fl (80.0-96.0); RED CELL DISTRIBUTION WIDTH 13.1 % (11.5-14.5); WHITE BLOOD COUNT 7.8 K/mm3 (4.0-10.0)
[2016-06-26 13:04] LABS: ALBUMIN 3.7 GM/DL (3.2-5.2); ALBUMIN/GLOBULIN RATIO 0.95 (1.00-1.93); ALKALINE PHOSPHATASE 67 U/L (45-117); ALT/SGPT 17 U/L (12-78); ANION GAP 12 MEQ/L (8-16); AST/SGOT 11 U/L (15-37); BILIRUBIN,TOTAL 1.1 MG/DL (0.2-1.0); BLOOD UREA NITROGEN 15 MG/DL (7-18); CALCIUM LEVEL 8.9 MG/DL (8.5-10.1); CARBON DIOXIDE LEVEL 26 MEQ/L (21-32); CHLORIDE LEVEL 104 MEQ/L (98-107); CREATININE FOR GFR 0.95 MG/DL (0.55-1.02); GLOMERULAR FILTRATION RATE > 60.0 (>60); GLUCOSE, FASTING 77 MG/DL (70-105); POTASSIUM SERUM 3.6 MEQ/L (3.5-5.1); SODIUM LEVEL 142 MEQ/L (136-145); TOTAL PROTEIN 7.6 GM/DL (6.4-8.2)
[2016-06-26 13:45] LABS: CONTROL LINE INT CTR LINE PRESENT; HIV SCRN NEGATIVE (NEGATIVE); HIV SCRN1 NEGATIVE (NEGATIVE)
== END ==
LOC: M SFHCPLAZ 10:16
PROVIDERS: ATTEND Nurse Practitioner Adult Health
DX: R35.0 Frequency of micturition (principal); Z00.00 Encounter for general adult medical examination without abnormal findings; Z11.4 Encounter for screening for human immunodeficiency virus [HIV]

== ENCOUNTER 2018-08-07 11:59 | Emergency (ER) | payer OTHER ==
[~2018-08-07] VITALS: Ht 157.5 cm; Wt 104.4 kg
[~2018-08-07 11:59] MED LIST changes: +HYDR-3363 PO; -HYDR25T PO
[2018-08-07] MEDS ORDERED: NS 1,000 ML IV ONE (12:30)
[2018-08-07 12:42] LABS: BASO % 0.2 % (0.0-1.0); EOS % 0.2 % (0.0-3.0); HEMATOCRIT 39.6 % (36.0-47.0); HEMOGLOBIN 13.6 g/dl (12.0-15.5); LYMPH # 0.7 10^3/uL (1.5-6.5); LYMPH % 5.6 % (24.0-44.0); MEAN CORPUSCULAR HEMOGLOBIN 32.4 pg (27.0-33.0); MEAN CORPUSCULAR HGB CONC 34.3 g/dl (32.0-36.5); MEAN CORPUSCULAR VOLUME 94.3 fl (80.0-96.0); MONO # 0.7 10^3/uL (0.0-0.8); MONO % 5.6 % (0.0-5.0); NEUTROPHILS # 11.2 10^3/uL (1.8-7.7); NEUTROPHILS % 87.8 % (36.0-66.0); PLATELET COUNT, AUTOMATED 196 10^3/uL (150-450); WHITE BLOOD COUNT 12.8 10^3/uL (4.0-10.0)
[2018-08-07] MEDS ORDERED: KETOROLAC 30 MG/ML VIAL (J1885) IV ONE (13:15)
[2018-08-07 13:17] LABS: ALBUMIN 3.1 GM/DL (3.2-5.2); ALT/SGPT 22 U/L (12-78); AMYLASE 28 U/L (25-115); BILIRUBIN,DIRECT 0.2 MG/DL (0.0-0.2); BILIRUBIN,TOTAL 0.9 MG/DL (0.2-1.0); BLOOD UREA NITROGEN 8 MG/DL (7-18); CALCIUM LEVEL 8.5 MG/DL (8.5-10.1); CARBON DIOXIDE LEVEL 24 MEQ/L (21-32); CHLORIDE LEVEL 106 MEQ/L (98-107); CREATININE FOR GFR 1.02 MG/DL (0.55-1.30); GLOMERULAR FILTRATION RATE > 60.0 (>60); GLUCOSE, FASTING 127 MG/DL (70-100); HCG, SERUM QUALITATIVE NEGATIVE (NEGATIVE); LIPASE 46 U/L (73-393); POTASSIUM SERUM 3.6 MEQ/L (3.5-5.1); SODIUM LEVEL 139 MEQ/L (136-145); TOTAL PROTEIN 6.7 GM/DL (6.4-8.2)
[2018-08-07] MEDS ORDERED: BACT800T5 PO (13:54)
[2018-08-07] MEDS ORDERED: PYRI1TAB5 PO (13:55)
[2018-08-07] MEDS ORDERED: KETO10TAB PO (13:55)
[2018-08-07 14:20] VITALS: BP 121/68
== END 2018-08-07 14:21 | disposition home or self-care (01) ==
LOC: M ED 11:59
DX: N30.90 Cystitis, unspecified without hematuria (principal); F33.9 Major depressive disorder, recurrent, unspecified; F41.9 Anxiety disorder, unspecified
CPT/HCPCS: 80048; 80076; 81001; 81025; 82150; 83690; 84703; 85025; 87088; 87186; 96374; 99284; J1885

== ENCOUNTER → 2019-02-09 | Outpatient (REF) | payer OTHER ==
[~2019-02-09] MED LIST changes: +BACT800T5 PO; +KETO10TAB PO; +PYRI1TAB5 PO
[2019-02-09 22:00] LABS: APPEARANCE, URINE CLEAR (CLEAR); BACTERIA, URINE AUTO NEGATIVE (NEGATIVE); BILIRUBIN, URINE AUTO 1+ (NEGATIVE); BLOOD, URINE BLOOD 1+ (NEGATIVE); COLOR, URINE AMBER (YELLOW); GLUCOSE, URINE (UA) AUTO NEGATIVE (NEGATIVE); KETONE, URINE AUTO TRACE mg/dL (NEGATIVE); LEUKOCYTE ESTERASE, URINE AUTO NEGATIVE (NEGATIVE); MUCUS, URINE SMALL (NEGATIVE); NITRITE, URINE AUTO NEGATIVE (NEGATIVE); PROTEIN, URINE AUTO 1+ mg/dL (NEGATIVE); RBC, URINE AUTO 9 /HPF (0-3); SPECIFIC GRAVITY URINE AUTO 1.017 (1.002-1.035); SQUAMOUS EPITHELIAL CELL UR AU 3 /HPF (0-6); WBC, URINE AUTO 1 /HPF (0-3)
== END ==
LOC: M LAB REF 13:49
PROVIDERS: ATTEND Physician Assistant
DX: N39.0 Urinary tract infection, site not specified (principal)

== ENCOUNTER 2019-05-07 23:05 | Inpatient (IN) | payer OTHER ==
[~2019-05-07] VITALS: Ht 157.5 cm; Wt 102.5 kg
[2019-05-08] MEDS ORDERED: KETOROLAC 30 MG/ML VIAL (J1885) IV ONE
[2019-05-08] MEDS ORDERED: ISOVUE-370 76% 100ML VIAL (Q9967) As Ordered ONE (01:29)
--- NOTE | 2019-05-08 02:13 | REPVR ---
PROCEDURE INFORMATION: Exam: CT Maxillofacial With Contrast Exam date and time: 05/08/2019 1:34 AM Age: 29 years old Clinical indication: Mass, lump, or swelling; Other: Right temporal; Additional info: Abscess right temporal now swelling/erythema around eye/face TECHNIQUE: Imaging protocol: Computed tomography images of the face with intravenous contrast. Radiation optimization: All CT scans at this facility use at least one of these dose optimization techniques: automated exposure control; mA and/or kV adjustment per patient size (includes targeted exams where dose is matched to clinical indication); or iterative reconstruction. Contrast material: ISOVUE 370; Contrast volume: 75 ml; Contrast route: IV; COMPARISON: CT Maxilofacial w/out contrast 02/24/2015 1:41 AM FINDINGS: Orbits: Symmetric globes. No intraorbital inflammatory change. Sinuses: Normal. No air-fluid levels. Bones/joints: No acute fracture. Submandibular/Parotid glands: Inflammatory changes extend to the right parotid gland. There is asymmetric prominence of the right parotid gland. Soft tissues: There is soft tissue swelling and inflammatory change involving the right lateral facial soft tissues extending to the right temporal soft tissues. There is fluid density at the right lateral soft tissues without discrete drainable fluid collection. IMPRESSION: 1. Right lateral facial soft tissue swelling and inflammatory change extending to the right temporal soft tissues concerning for cellulitis. Suspect associated right-sided parotitis. 2. Fluid density in particular involving the right lateral temporal soft tissues concerning for phlegmon. 3. No discrete drainable fluid collection. Electronically signed by: Ja Pavon On 05/08/2019 02:13:13 AM
[2019-05-08 02:14] LABS: BASO % 0.4 % (0.0-1.0); EOS # 0.2 10^3/uL (0.0-0.5); EOS % 2.6 % (0.0-3.0); HEMATOCRIT 39.6 % (36.0-47.0); HEMOGLOBIN 13.2 g/dl (12.0-15.5); LYMPH # 2.7 10^3/uL (1.5-5.0); LYMPH % 32.2 % (24.0-44.0); MEAN CORPUSCULAR HEMOGLOBIN 32.8 pg (27.0-33.0); MEAN CORPUSCULAR HGB CONC 33.3 g/dl (32.0-36.5); MEAN CORPUSCULAR VOLUME 98.3 fl (80.0-96.0); MONO # 0.9 10^3/uL (0.0-0.8); NEUTROPHILS # 4.6 10^3/uL (1.5-8.5); NEUTROPHILS % 54.6 % (36.0-66.0); PLATELET COUNT, AUTOMATED 211 10^3/uL (150-450); RED BLOOD COUNT 4.03 10^6/uL (4.00-5.40); WHITE BLOOD COUNT 8.5 10^3/uL (4.0-10.0)
[2019-05-08] MEDS ORDERED: CEFTAROLINE FOSAMIL 600 MG in D5W MINI-BAG PLUS 50 ML IV ONE (02:30)
[2019-05-08 02:33] LABS: ALBUMIN 3.2 GM/DL (3.2-5.2); BILIRUBIN,DIRECT 0.2 MG/DL (0.0-0.2); BILIRUBIN,TOTAL 0.4 MG/DL (0.2-1.0); C REACTIVE PROTEIN QUANTITATIV 1.3 MG/DL (0.00-0.30); TOTAL PROTEIN 7.7 GM/DL (6.4-8.2)
[2019-05-08 02:36] LABS: ERYTHROCYTE SEDIMENTATION RATE 35 mm/hr (0-20)
[2019-05-08] MEDS ORDERED: NS 1,000 ML IV SCH (03:00)
--- NOTE | 2019-05-08 03:58 | HPEPDOC ---
[facility] Medical History & Physical Date of Admission May 08, 2019 Date of Service: May 08, 2019 Attending Physician: JOSÉ MIGUEL SCHWARTZ DO History and Physical CHIEF COMPLAINT: Right sided facial swelling HISTORY OF PRESENT ILLNESS: Patient is a 29 year old female who presented to the [facility] ER with complaint of right sided facial swelling for several days. She stated that approximately 2-3 days ago she had developed what she believed to be a pimple on her right yazidism. She stated that she went to "pop the pimple" successfully. The next day she noticed some warmth, redness, and increased swelling. She "popped the pimple" again and stated that there was pus draining. Over the course of the next day she developed swelling down around her eye and side of her face. She noted that there was increased tenderness in these areas. She denies any difficulty swallowing. She denies any pain on swallowing. She currently denies any symptoms of fevers, chills, nausea, or vomiting. At presentation in the ER the patient was found to be vitally stable and afebrile. She did not have a leukocytosis. CT maxillofacially was performed demonstrated likely facial cellulitis (see full report below). The patient did indicate a past history of IV drug abuse however states that she has not used in over 3 years. The patient was started on Ceftaroline for empiric coverage of MRSA. PAST MEDICAL HISTORY: 1. History of IV drug abuse with Crack/cocaine 2. History of Tobacco abuse quit 2 years ago PAST SURGICAL HISTORY: 1. x1 SOCIAL HISTORY: Patient currently lives at home with her fiance. She denies any current alcohol use. She is a former smoker. She denies any other tobacco use. She is a former IV drug user. She denies any IV drug use since 3 years ago. FAMILY HISTORY: Patients mother is alive and well without any significant medical problems. She does not know her father. She states that she has brothers and sisters however has never met them ALLERGIES: Please see below. REVIEW OF SYSTEMS: CONSTITUTIONAL: Denies fevers, chills, nightsweats. Denies unintentional weight loss or weight gain HEENT: Denies changes in vision. Admits to pain in right temporal region extending down the right side of her face and under her eye. Denies pain on extraocular movement. Denies difficulty swallowing or pain on swallowing CARDIOVASCULAR: Denies chest pain, palpitations, or feelings of the heart racing RESPIRATORY: Denies shortness of breath. Denies coughing or wheezing GASTROINTESTINAL: Denies abdominal pain, nausea, vomiting, diarrhea, or constipation GENITOURINARY: Denies urinary frequency. Denies urgency or dysuria SKIN: Admits to right temporal and right sided facial swelling with redness. Denies any other rashes or lesions MUSCULOSKELETAL: Denies any muscle weakness NEUROLOGICAL: Denies any changes in speech, gait, or motor function PSYCHIATRIC: Admits to history of drug addiction. Denies current depression or anxiety ENDOCRINE: Denies heat intolerance or cold intolerance HEMATOLOGIC/LYMPHATIC: Denies easy bruising or bleeding HOME MEDICATIONS: Please see below. PHYSICAL EXAMINATION: VITAL SIGNS: Temperature 98,2, pulse 85, respiratory rate 18, blood pressure 121/59, pulse oximetry 100% on room air. GENERAL APPEARANCE: Patient is awake, alert, and oriented. She does not appear to be in any acute distress. She is sitting comfortably in exam room HEENT: There is right temporal swelling and a 3x4 cm area of swelling with a central scab. There is no current drainage and there is no expression of purulent material. There is palpable swelling extending down her right lateral neck. She has an area of erythema and soft tissue swelling under her right eye. There is no pain on extraocular motion. There is no tenderness on palpation of t he patients maxillary, orbital, and frontal sinus CARDIOVASCULAR: Normal S1, S2. Regular rate and rhythm. No clicks rubs or murmurs LUNGS: Clear vesicular breath sounds bilaterally with good respiratory effort. No wheezes, rhonchi, or rales. ABDOMEN: Obese. Soft. Nondistended. Nontender. No rebound tenderness or gaurding. No hepatomegaly or splenomegaly MUSCULOSKELETAL: 5/5 upper and lower extremity strength testing EXTREMITIES: No edema. Full and equal pulses in bilateral upper and lower ex tremities NEUROLOGICAL: No focal neurological deficits PSYCHIATRIC: Mood and affect appear appropriate LABORATORY DATA: See below. IMAGING: PROCEDURE INFORMATION: Exam: CT Maxillofacial With Contrast Exam date and time: 05/08/2019 1:34 AM Age: 29 years old Clinical indication: Mass, lump, or swelling; Other: Right temporal; Additional info: Abscess right temporal now swelling/erythema around eye/face TECHNIQUE: Imaging protocol: Computed tomography images of the face with intravenous contrast. Radiation optimization: All CT scans at this facility use at least one of these dose optimization techniques: automated exposure control; mA and/or kV adjustment per patient size (includes targeted exams where dose is matched to clinical indication); or iterative reconstruction. Contrast material: ISOVUE 370; Contrast volume: 75 ml; Contrast route: IV; COMPARISON: CT Maxilofacial w/out contrast 02/24/2015 1:41 AM FINDINGS: Orbits: Symmetric globes. No intraorbital inflammatory change. Sinuses: Normal. No air-fluid levels. Bones/joints: No acute fracture. Submandibular/Parotid glands: Inflammatory changes extend to the right parotid gland. There is asymmetric prominence of the right parotid gland. Soft tissues: There is soft tissue swelling and inflammatory change involving the right lateral facial soft tissues extending to the right temporal soft tissues. There is fluid density at the right lateral soft tissues without discrete drainable fluid collection. IMPRESSION: 1. Right lateral facial soft tissue swelling and inflammatory change extending to the right temporal soft tissues concerning for cellulitis. Suspect associated right-sided parotitis. 2. Fluid density in particular involving the right lateral temporal soft tissues concerning for phlegmon. 3. No discrete drainable fluid collection. Electronically signed by: Ja Pavon On 05/08/2019 02:13:13 MICROBIOLOGY: Please see below. ASSESSMENT: Patient is a 29 year old female who presented to the [facility] ER with right temporal and facial swelling who was found to have facial/preseptal cellulitis. . PLAN: 1. Facial/Preseptal Cellulitis -Patient has cellulitis. She has a history of IV drug abuse and MRSA. Will start empiric treatment with Ceftaroline for MRSA coverage -Case was discussed with ENT search consultant as patient has infection concerning for development into orbital cellulitis. ENT suggested head elevation and continued antibiotics. Consultation has been placed. No need for surgical intervention at this point in time -Blood cultures pending -Trending CBC -CRP pending -ESR elevated -Exam does not demonstrate pain on extraocular motion making orbital cellu litis unlikely. CT imaging demonstrated soft tissue swelling. Will continue with IV antibiotics and head elevation 2. Transaminitis -Patient hs elevated transaminases. She is an IV drug user. She states that she has been recently testing for Hep C, Hep B, and Hep A. She currently denies any abdominal pain or discomfort. -May be secondary to steatohepatitis. Would recommend outpatient follow-up for further evaluation and repeat transaminase levels 3. Obesity with BMI of 43.1 -Patient is at risk for steatohepatitis based on her weight 4. History of Drug Abuse -Patient has a history of IV drug abuse. She states that she currently does not use 5. DVT prophylaxis -TEDs and Sequentials I, José Miguel Schwartz, have independently examined this patient and performed my own physical exam, as well as reviewed the documentation and edited where necessary. I have discussed in detail with the resident / student the findings and plan of treatment as documented by the resident / student and edited their note. I agree with their findings and treatment plan and have edited their documentation. I will continue to follow the patient during this hospital stay. Vital Signs Vital Signs Date Time Temp Pulse Resp B/P (MAP) Pulse Ox O2 Delivery O2 Flow Rate FiO2 05/07/19 23:34 05/07/19 23:06 98.2 85 18 100 Room Air Laboratory Data Labs 24H Laboratory Tests 2 05/08/19 01:12: POC Glucose (Misc Panel) 94, POC Sodium (Misc Panel) 139, POC Potassium (Misc Panel) 4.2, POC Chloride (Misc Panel) 103, POC Total CO2 (Misc Panel) 28.0H, POC Blood Urea Nitrogen (Misc Panel 11, POC Ionized Calcium (Misc Panel) 4.4L, POC Creatinine (Misc Panel) 0.6, POC Hematocrit (Misc Panel) 42.0 05/08/19 01:15: POC Beta HCG, Quantitative < 5.0 05/08/19 02:07: Immature Granulocyte % (Auto) 0.2, Neutrophils (%) (Auto) 54.6, Lymphocytes (%) (Auto) 32.2, Monocytes (%) (Auto) 10.0H, Eosinophils (%) (Auto) 2.6, Basophils (%) (Auto) 0.4, Neutrophils # (Auto) 4.6, Lymphocytes # (Auto) 2.7, Monocytes # (Auto) 0.9H, Eosinophils # (Auto) 0.2, Basophils # (Auto) 0.0, Nucleated Red Blood Cells % (auto) 0.0, Erythrocyte Sedimentation Rate 35H, Total Bilirubin 0.4, Direct Bilirubin 0.2, Aspartate Amino Transf (AST/SGOT) 63H, Alanine Amino transferase (ALT/SGPT) 114H, Alkaline Phosphatase 70, C-Reactive Protein, Quantitative 1.30H, Total Protein 7.7, Albumin 3.2, Albumin/Globulin Ratio 0.71L CBC/BMP Laboratory Tests 05/08/19 02:07 Home Medications Scheduled Doxycycline Monohydrate (Doxycycline) 100 Mg Capsule, 100 MG PO BID Allergies Coded Allergies: No Known Allergies (Verified , 07/19/04) A-FIB/CHADSVASC A-FIB History Current/History of A-Fib/PAF?: No TOMMIE BOWLES DO May 08, 2019 03:58 JOSÉ MIGUEL SCHWARTZ DO May 09, 2019 23:34
[2019-05-08 04:01] VITALS: BP 136/80
[2019-05-08 05:32] VITALS: BP 127/75
--- NOTE | 2019-05-08 08:24 | IPNPDOC ---
Text Note Date of Service The patient was seen on 05/08/19. NOTE Subjective: Patient is a 29-year-old female with a past medical history of IV drug abuse (Crack / Cocaine) and tobacco use who presented to the emergency room with complaints of right-sided facial swelling for the last several days. Patient noted that she started with a small pimple that she had "popped" that resulted in pus drainage. Patient noted that soon after her face became swollen, red and tender. Patient was admitted to hospitalist service for further evaluation and treatment for facial cellulins. ENT was called on consultation. Patient was seen and examined at the bedside. Currently, patient reports that her facial swelling, redness and tenderness have improved significantly from the point arrival. She denies chest pain, shortness of breath, palpitations. Denies nausea, vomiting, abdominal pain, diarrhea, or urinary discomfort. Objective: Vitals (See below) General: Lying in bed, no acute distress, comfortable, AAOx3 HEENT: NC, AT, Small area of mild erythema / swelling / tenderness noted at right fronto-temporal region, no drainage, scab noted CVS: RRR, +S1S2 Lungs: Fair air entry b/l, -w/r/r Abdomen: Soft, ND, NT Extremities: - Edema, - Calf tenderness Assessment and plan: Facial / Preseptal Cellulitis - Clinically patient has noted significant improvement of her facial redness, swelling and tenderness - Physical, has shown regression of area of cellulitis - Patient remains hemodynamically stable and afebrile - No leukocytosis; CRP mildly elevated - will continue to trend - Blood cultures 05/08: Pending - c/w Ceftaroline (Day #1); Will DC IV fluids - ENT called on consultation; appreciate their input - c/w head of bed elevation Transaminitis - Patient has a history of IV drug abuse; was tested for hep A, B, and C in 2015 - was negative - Patient has been advised that she should continue follow-up with her primary care provider for additional testing - Will check Hepatitis panel Hx of IV drug abuse - Reported use of crack / cocaine Hx of Smoking Morbid obesity - BMI of 43.1 - Complicating medical care DVT prophylaxis - c/w TEDs/Sequentials Disposition: - Anticipate discharge within 24 hours Bronwyn ESCOBAR, I+O VS, Bronwyn, I+O Laboratory Tests 05/08/19 02:07 Vital Signs Date Time Temp Pulse Resp B/P (MAP) Pulse Ox O2 Delivery O2 Flow Rate FiO2 05/08/19 05:32 99.2 80 19 127/75 (92) 99 Room Air I&O- Last 24 Hours up to 6 AM 05/08/19 06:00 Intake Total 350 ml Output Total 700 ml Balance -350 ml NGUYEN ORDONEZ MD May 08, 2019 08:24
[2019-05-08] MEDS ORDERED: DOXY-350 PO (09:14)
[2019-05-08] MEDS ORDERED: CEFTAROLINE FOSAMIL 600 MG in D5W MINI-BAG PLUS 50 ML IV SCH (10:00)
[2019-05-08 14:00] VITALS: BP 119/71
[2019-05-08] MEDS: CEFTAROLINE FOSAMIL 600 MG in D5W MINI-BAG PLUS 50 ML IV SCH (14:35)
[2019-05-08] MEDS: ACETAMINOPHEN TAB 650MG DOSE (2X325MG) PO PRN (14:40)
[2019-05-08] MEDS: KETOROLAC 30 MG/ML VIAL (J1885) IV PRN (15:42)
[2019-05-08] MEDS: NS 1,000 ML IV SCH (15:42)
[2019-05-08 20:53] VITALS: BP 122/87
[2019-05-09] MEDS: CEFTAROLINE FOSAMIL 600 MG in D5W MINI-BAG PLUS 50 ML IV SCH ×2 (02:31→14:07)
[2019-05-09] MEDS: KETOROLAC 30 MG/ML VIAL (J1885) IV PRN (02:31)
[2019-05-09] MEDS: NS 1,000 ML IV SCH ×2 (04:30→14:07)
[2019-05-09 05:54] LABS: HEMATOCRIT 38.9 % (36.0-47.0); HEMOGLOBIN 12.8 g/dl (12.0-15.5); MEAN CORPUSCULAR HEMOGLOBIN 32.3 pg (27.0-33.0); MEAN CORPUSCULAR HGB CONC 32.9 g/dl (32.0-36.5); MEAN CORPUSCULAR VOLUME 98.2 fl (80.0-96.0); PLATELET COUNT, AUTOMATED 204 10^3/uL (150-450); RED BLOOD COUNT 3.96 10^6/uL (4.00-5.40); WHITE BLOOD COUNT 6.5 10^3/uL (4.0-10.0)
[2019-05-09 06:07] VITALS: BP 118/79
[2019-05-09 06:16] LABS: BLOOD UREA NITROGEN 10 MG/DL (7-18); C REACTIVE PROTEIN QUANTITATIV 1.23 MG/DL (0.00-0.30); CALCIUM LEVEL 8.3 MG/DL (8.5-10.1); CARBON DIOXIDE LEVEL 25 MEQ/L (21-32); CHLORIDE LEVEL 110 MEQ/L (98-107); CREATININE FOR GFR 0.75 MG/DL (0.55-1.30); GLOMERULAR FILTRATION RATE > 60.0 (>60); GLUCOSE, FASTING 98 MG/DL (70-100); POTASSIUM SERUM 3.7 MEQ/L (3.5-5.1); SODIUM LEVEL 140 MEQ/L (136-145)
--- NOTE | 2019-05-09 10:00 | DS.PDOC ---
Discharge Summary General Date of Admission May 08, 2019 at 02:54 Date of Discharge 05/09/2019 Discharge Summary PROCEDURES PERFORMED DURING STAY: [None]. ADMITTING DIAGNOSES / DISCHARGE DIAGNOSES: Facial / Preseptal Cellulitis Transaminitis Hx of IV drug abuse Hx of Smoking Morbid obesity DVT prophylaxis COMPLICATIONS/CHIEF COMPLAINT: Right face swelling, redness and tenderness HISTORY OF PRESENT ILLNESS: Patient is a 29-year-old female with a past medical history of IV drug abuse (Crack / Cocaine) and tobacco use who presented to the emergency room with complaints of right-sided facial swelling for the last several days. Patient noted that she started with a small pimple that she had "popped" that resulted in pus drainage. Patient noted that soon after her face became swollen, red and tender. Patient was admitted to hospitalist service for further evaluation and treatment for facial cellulins. ENT was called on consultation. HOSPITAL COURSE: Facial / Preseptal Cellulitis - Clinically patient has noted significant improvement of her facial redness, swelling and tenderness - Physical, has shown regression of area of cellulitis; no pain with movement of extraocular muscles - Patient remains hemodynamically stable and afebrile - No leukocytosis; CRP mildly elevated - will continue to trend - Blood cultures 05/08: Pending - Will c/w Doxycycline on discharge; Will DC Ceftaroline (Day #2); s/p IV fluids - ENT called on consultation; Transaminitis - Patient has a history of IV drug abuse; was tested for hep A, B, and C in 2014 - was negative - Patient has been advised that she should continue follow-up with her primary care provider for additional testing - Hepatitis panel pending; will have outpatient follow up with PCP Hx of IV drug abuse - Reported use of crack / cocaine Hx of Smoking Morbid obesity - BMI of 43.1 - Complicating medical care DVT prophylaxis - c/w TEDs/Sequentials DISCHARGE MEDICATIONS: Please see below. ALLERGIES: Please see below. PHYSICAL EXAMINATION ON DISCHARGE: Vitals (See below) General: Lying in bed, no acute distress, comfortable, AAOx3 HEENT: NC, AT, Decreased area of erythema / swelling / tenderness noted at right fronto-temporal region, spontaneous drainage noted CVS: RRR, +S1S2 Lungs: Fair air entry b/l, no appreciable wheezing / rhonchi / rales Abdomen: Soft, non-distended, non-tender Extremities: - Edema, - Calf tenderness LABORATORY DATA: Please see below. ACTIVITY: [As tolerated]. DISCHARGE PLAN: Follow up with PCP and ENT within 7 days Remain compliant with treatment plan and medications Return to the ER if you experience any problems DISPOSITION: Home DISCHARGE CONDITION: [Stable]. TIME SPENT ON DISCHARGE: 36 minutes Vital Signs/I&Os Vital Signs Date Time Temp Pulse Resp B/P (MAP) Pulse Ox O2 Delivery O2 Flow Rate FiO2 05/09/19 06:07 98.0 68 16 118/79 (92) 99 Room Air I&O- Last 24 Hours up to 6 AM 05/09/19 06:00 Intake Total 1920 ml Output Total 1075 ml Balance 845 ml Laboratory Data Labs 24H Laboratory Tests 2 05/09/19 05:40: Nucleated Red Blood Cells % (auto) 0.0, Anion Gap 5L, Glomerular Filtration Rate > 60.0, Calcium Level 8.3L, C-Reactive Protein, Quantitative 1.23H CBC/BMP Laboratory Tests 05/09/19 05:40 Microbiology Microbiology 05/08/19 Wound Culture, Received Pending 05/08/19 Anaerobic Culture, Received Pending 05/08/19 Blood Culture - Preliminary, Resulted No growth after 24 hours . All specim... 05/08/19 Blood Culture - Preliminary, Resulted No growth after 24 hours . All specim... Discharge Medications Scheduled Doxycycline Monohydrate (Doxycycline) 100 Mg Capsule, 100 MG PO BID Allergies Coded Allergies: No Known Allergies (Verified , 07/19/04) NGUYEN ORDONEZ MD May 09, 2019 10:00
[2019-05-09 11:29] LABS: HEPATITIS A ANTIBODY IGM EQUIVOCAL (NEGATIVE); HEPATITIS B CORE ANTIBODY IGM NEGATIVE (NEGATIVE); HEPATITIS B SURFACE ANTIGEN NEGATIVE (NEGATIVE); HEPATITIS C VIRUS ABY INDEX > 11.0 INDEX (<0.8)
[2019-05-09] MEDS: ACETAMINOPHEN TAB 650MG DOSE (2X325MG) PO PRN (14:07)
[2019-05-09 15:09] VITALS: BP 93/59
== END 2019-05-09 16:20 | disposition home or self-care (01) | DRG 383 ==
LOC: M ED 23:05 → M ED INP 05-08 02:54 → M MS5PR 05-08 03:50
PROVIDERS: ADMIT Internal Medicine; ATTEND Internal Medicine
DX: L03.211 Cellulitis of face (principal); Z68.41 Body mass index [BMI] 40.0-44.9, adult; L03.213 Periorbital cellulitis; R74.0 Nonspecific elevation of levels of transaminase and lactic acid dehydrogenase [LDH]; E66.9 Obesity, unspecified; Z87.891 Personal history of nicotine dependence; Z86.14 Personal history of Methicillin resistant Staphylococcus aureus infection; Z79.899 Other long term (current) drug therapy

== ENCOUNTER → 2019-06-19 | Outpatient (CLI) | payer OTHER ==
[~2019-06-19] MED LIST changes: +DOXY-350 PO
--- NOTE | 2019-06-21 04:29 | REP ---
Clinical: Trauma. Technique: AP, lateral, bilateral oblique views left wrist . Findings: AP view cannot exclude a very subtle defect through the mid scaphoid possibly representing nondisplaced injury. Repeat examination with scaphoid view is recommended. Remainder examination appears normal. Impression: Correlation with point tenderness is recommended as subtle injury to the scaphoid cannot be excluded. Consider reevaluation with scaphoid view. Electronically Signed by Robert Harris MD 06/21/2019 04:20 A
== END ==
LOC: M WUC 16:54
PROVIDERS: ATTEND Physician Assistant
DX: M25.532 Pain in left wrist (principal)

== ENCOUNTER → 2021-01-25 | Outpatient (REF) | payer OTHER ==
[2021-01-25 16:49] LABS: APPEARANCE, URINE HAZY (CLEAR); BACTERIA, URINE AUTO NEGATIVE (NEGATIVE); BILIRUBIN, URINE AUTO NEGATIVE (NEGATIVE); BLOOD, URINE BLOOD NEGATIVE (NEGATIVE); COLOR, URINE YELLOW (YELLOW); GLUCOSE, URINE (UA) AUTO NEGATIVE (NEGATIVE); KETONE, URINE AUTO NEGATIVE (NEGATIVE); LEUKOCYTE ESTERASE, URINE AUTO NEGATIVE (NEGATIVE); MUCUS, URINE SMALL (NEGATIVE); NITRITE, URINE AUTO NEGATIVE (NEGATIVE); PROTEIN, URINE AUTO NEGATIVE (NEGATIVE); RBC, URINE AUTO 1 /HPF (0-3); SPECIFIC GRAVITY URINE AUTO 1.028 (1.002-1.035); SQUAMOUS EPITHELIAL CELL UR AU 2 /HPF (0-6); UROBILINOGEN, URINE AUTO 0.2 mg/dL (0.0-2.0); WBC, URINE AUTO 3 /HPF (0-3)
== END ==
LOC: M LAB REF 16:25
PROVIDERS: ATTEND Physician Assistant Medical
DX: R30.0 Dysuria (principal)

== ENCOUNTER 2024-02-07 20:19 | Emergency (ER) | payer MEDICAID, OTHER, SELFPAY ==
[~2024-02-07] VITALS: Ht 160 cm; Wt 103.2 kg
[~2024-02-07 20:19] MED LIST changes: -DOXY-350 PO; +DOXY-440 PO; -TRIA37.53 PO; +TRIA37.577 PO
[2024-02-07] MEDS: FLUORESCEIN OPHTH 1MG STRIP OU ONE (20:50)
[2024-02-07] MEDS: PROPARACAINE 0.5% OPHTH SOL 15ML OU ONE (20:50)
[2024-02-07] MEDS ORDERED: ERYT5OIN25 OP (21:26)
[2024-02-07 22:28] VITALS: BP 125/75; TEMP 97.5; O2SAT 98
[2024-02-07] MEDS: ERYTHROMYCIN OPHTH OINT OU ONE (22:28)
== END 2024-02-07 22:25 | disposition home or self-care (01) ==
LOC: M ED 20:19
DX: H18.823 Corneal disorder due to contact lens, bilateral (principal); Z79.2 Long term (current) use of antibiotics

== ENCOUNTER 2024-08-07 16:57 | Emergency (ER) | payer MEDICAID ==
[~2024-08-07] VITALS: Ht 157.5 cm; Wt 93.2 kg
[~2024-08-07 16:57] MED LIST changes: +ERYT5OIN25 OP
[2024-08-07] MEDS: BENZONATATE 100MG CAPSULE PO ONE (19:31)
[2024-08-07 20:55] VITALS: BP 122/81; TEMP 98.1; O2SAT 100
[2024-08-07] MEDS ORDERED: KETOROLAC 30 MG/ML 1ML VIAL IV ONE (20:55)
[2024-08-07] MEDS ORDERED: ACETAMINOPHEN *IV* 1,000 MG in IV 1 EA IV ONE (20:55)
[2024-08-07] MEDS ORDERED: VENTAER INH (21:45)
[2024-08-07] MEDS ORDERED: AMOX500T PO (21:45)
[2024-08-07] MEDS ORDERED: BREAMIS10 MC (21:45)
[2024-08-07] MEDS: AMOXICILLIN 500 MG CAP PO ONE (22:10)
== END 2024-08-07 22:11 | disposition home or self-care (01) ==
LOC: M ED 16:57
DX: J18.9 Pneumonia, unspecified organism (principal); F17.290 Nicotine dependence, other tobacco product, uncomplicated; Z79.2 Long term (current) use of antibiotics; Z79.51 Long term (current) use of inhaled steroids